=== PATIENT | female | born 1960 | race Caucasian/White ===

== ENCOUNTER 2016-04-27 19:50 | Emergency (ER) | payer BC ==
[~2016-04-27] VITALS: Wt 74.0 kg
[2016-04-27] MEDS ORDERED: CLOT30CR24 TOP (20:26)
--- NOTE | 2016-04-27 20:31 | ERD ---
ER Documentation Chief Complaint Date/Time DATE: 04/27/16 TIME: 20:28 Chief Complaint C SECTION SCAR FROM 25 YRS AGO. NO FEVERS. SOME REDNESS HPI This is a 56-year-old female who presents to the emergency department today with her daughter who works in registration for some redness along her C- section scar from 25 years ago. Patient states that the redness has been there for the past 2 weeks. Patient states that the area is itching. Denies any fevers or chills. ROS All systems reviewed and are negative except as per history of present illness. Medications Home Meds Active Scripts Clotrimazole* (Clotrimazole* AF) 1% - 30 Gm Cream.gm., 1 APPLIC TOP BID for 7 Days, #1 TUB Prov:JANE RODRIGUEZ PA-C 04/27/16 PMhx/Soc History of Surgery: Yes (C section, thyroidectomy, kidney stents) Anesthesia Reaction: No Hx Neurological Disorder: No Hx Respiratory Disorders: No Hx Cardiac Disorders: No Hx Psychiatric Problems: No Hx Miscellaneous Medical Probl: Yes (Thyroid problem) Hx Alcohol Use: No Hx Substance Use: No Hx Tobacco Use: No Physical Exam Vitals Vital Signs Date Time Temp Pulse Resp B/P Pulse Ox O2 Delivery O2 Flow Rate FiO2 04/27/16 19:55 97.4 75 20 164/70 98 Physical Exam Const: No acute distress Head: Atraumatic Eyes: Normal Conjunctiva ENT: Normal External Ears, Nose and Mouth. Neck: Full range of motion..~ No meningismus. Resp: Clear to auscultation bilaterally Cardio: Regular rate and rhythm, no murmurs Abd: Soft, non tender, non distended. Normal bowel sounds Skin: Area of erythema along skin fold of lower abdomen. No purulent drainage. No evidence of cellulitis. Neur: Awake and alert Psych: Normal Mood and Affect Procedures/MDM This 56-year-old female who presents to emergency department today complaining of some redness along the scar. She had 25 years ago. On physical exam patient appears to have some localized erythema along her skin fold that is fungal in nature. Patient's symptoms at this time is consistent with fungal infection. Patient is afebrile and otherwise well-appearing. She is nontender to palpation and there is no purulent drainage. I have low suspicion for sepsis , cellulitis, deep space infection. She was given a prescription for clotrimazole cream. Prior to discharge.her also mention that the mother was also complaining of some foul smell behind the patient's ear. On examination there appears to be localized erythema. Again there is no evidence for cellulitis or deep space infection. At this time the patient is stable for discharge and outpatient management. Patient should follow up with their PCP in the next 1-2 days. They may return to the emergency department sooner for any persistent or worsening of symptoms. Patient was instructed to return for any fevers or purulent drainage. Patient understood and agreed with the plan. Departure Diagnosis: Primary Impression: [place] infection Condition: Fair Patient Instructions: Fungal Infection, Skin [General] Referrals: your PCP Additional Instructions: Llame al doctor MAANA y eunice dione ANAY PARA DENTRO DE 1-2 WILLIAMSON.Dgale a la secretaria que nosotros le instruimos hacer esta anay.Avise o llame si mujica condicin se empeora antes de la anay. Regresa aqui si peor o no mejor. Use clotrimazole cream Return for any worsening of symptoms or fevers or pus or drainage JANE RODRIGUEZ PA-C Apr 27, 2016 20:31
== END 2016-04-27 20:53 | disposition home or self-care (01) ==
LOC: FTE 19:50 → EEVIPCON 19:50 → FTE 20:53
DX: B37.9 Candidiasis, unspecified (principal)
CPT/HCPCS: 99283